=== PATIENT | male | born 1975 | race Caucasian/White ===

== ENCOUNTER 2019-07-05 10:38 | Inpatient (IN) | payer MEDICAID ==
[~2019-07-05] VITALS: Ht 180.3 cm; Wt 90.7 kg
--- NOTE | 2019-07-05 11:15 | NUR ---
CAME IN FOR DIFFICULTY SWALLOWING, ALSO HAD SYNCOPAL EPISODE IN [employer] [facility] DAYS AGO. TO ER BED 8, HOOKED TO MONITOR, CHANGED TO GOWN, PROVIDED W WARM BLANKET, DR MOORE AT BEDSIDE
[2019-07-05] MEDS ORDERED: IV NS 0.9% 1,000 ML BAG IV ONE (11:30)
[2019-07-05] MEDS ORDERED: IV NS 0.9% 1,000 ML IV ONE (11:30)
[2019-07-05 11:48] LABS: BASOPHILS # (AUTO) 0.1 /CMM (0.0-0.2); HEMATOCRIT 44 % (39-51); HEMOGLOBIN 14.5 g/dL (13.5-17.5); LYMPHOCYTES # (AUTO) 2.8 /CMM (0.8-4.8); LYMPHOCYTES % (AUTO) 23.8 % (20.0-44.0); MEAN CORPUSCULAR HGB CONC 33 g/dl (31.0-36.0); MEAN CORPUSCULAR VOLUME 88 fL (80-96); MONOCYTES # (AUTO) 0.9 /CMM (0.1-1.30); MONOCYTES % (AUTO) 7.6 % (2.0-12.0); NEUTROPHILS # (AUTO) 7.7 /CMM (1.8-8.9); NEUTROPHILS % (AUTO) 64.6 % (43.0-81.0); PLATELET COUNT (AUTO) 368 /CMM (150-450); RED BLOOD CELL COUNT(AUTO) 4.96 MIL/uL (4.5-6.0); WHITE BLOOD COUNT (AUTO) 11.9 K/uL (4.3-11.0)
[2019-07-05 11:58] LABS: CALCIUM, SERUM 9.3 mg/dL (8.5-10.1); CREATININE 0.9 mg/dL (0.6-1.3); POTASSIUM 4.4 mmol/L (3.5-5.1)
[2019-07-05 12:04] LABS: BILIRUBIN,DIRECT 0.3 mg/dL (0.0-0.2); TOTAL PROTEIN, SERUM 9.6 g/dL (6.4-8.2)
[2019-07-05] MEDS ORDERED: IOHEXOL-300 100 ML VIAL IV ONE (12:09)
[2019-07-05] MEDS ORDERED: CT SWABBABLE VALVE TRANS SET 1 EA INFUS.SET MC ONE (12:09)
[2019-07-05] MEDS ORDERED: CLINDAMYCIN 600 MG in IV D5W 100 ML IV ONE (12:30)
--- NOTE | 2019-07-05 13:20 | NUR ---
CALLED NURSING SUP REQUESTED MEDSURG BED
[2019-07-05] MEDS ORDERED: DEXAMETHASONE SOD PHOSPHATE 10 MG/ML VIAL ONE (13:27)
[2019-07-05] MEDS ORDERED: DEXAMETHASONE SOD PHOSPHATE 10 MG/ML VIAL IV ONE (13:30)
--- NOTE | 2019-07-05 13:40 | NUR ---
ROOM 315-1 MS
--- NOTE | 2019-07-05 13:48 | NUR ---
REPORT GIVEN TO ALCON OF MS UNIT.
[2019-07-05] MEDS ORDERED: CLINDAMYCIN IV RTU IN D5W 900 MG/50 ML PIGGYBACK IV SCH (14:30)
[2019-07-05] MEDS ORDERED: MAG HYDROX/AL HYDROX/SIMETH 30 ML UDC PO PRN (14:30)
[2019-07-05] MEDS ORDERED: ACETAMINOPHEN 325 MG TABLET PO PRN (14:30)
[2019-07-05] MEDS ORDERED: Z GUARD REMEDY 2 OZ OINT TP PRN (14:30)
[2019-07-05] MEDS ORDERED: ONDANSETRON HCL/PF 4 MG/2 ML VIAL IVP PRN (14:30)
[2019-07-05] MEDS ORDERED: MAGNESIUM HYDROXIDE 30 ML UDC PO PRN (14:30)
[2019-07-05 14:35] VITALS: BP 145/82
--- NOTE | 2019-07-05 14:38 | NUR ---
TRANSPORTED TO MS UNIT BY TECH
--- NOTE | 2019-07-05 14:40 | NUR ---
m/s electrophysiology technologist: admission admitted this 44 year old male pt from [facility] with dx: pharyngitis. awake, a/ox4; ambulatory. still c/o difficulty swallowing. pt on aspiration precaution. hob elevated. vss, afebrile. oriented to room and surroundings. instructed to call for assistance. will continue to monitor.
[2019-07-05] MEDS: IV NS 0.9% 1,000 ML IV SCH (15:23)
[2019-07-05] MEDS: HYDROCODONE/APAP 5/325MG 1 EACH TABLET PO PRN ×2 (15:33→20:48)
--- NOTE | 2019-07-05 15:33 | NUR ---
m/s scullion chief: notes at bedside at this time. c/o 9/10 right neck pain, medicated with norco 5/325mg po as ordered. instructed to call for assistance. will continue to monitor.
[2019-07-05 16:00] VITALS: BP 145/82
--- NOTE | 2019-07-05 17:00 | NUR ---
m/s table saw operator: notes dinner served, hob elevated. brought outside food also. pt able to swallow slowly with no aspiration noted at this time. instructed to call for assistance. will continue to monitor.
--- NOTE | 2019-07-05 19:00 | NUR ---
m/s host and hostess: notes report given to sheri (rn) for continuity of care. needs attended.
--- NOTE | 2019-07-05 19:42 | NUR ---
RN MS OPENING NOTES RECEIVED PATIENT IN BED AWAKE, ALERT AND ORIENTED X4, VERBALLY RESPONSIVE, ABLE TO MAKE NEEDS KNOWN. BREATHING EVEN AND UNLABORED. NO SOB NOTED. TOLERATING ROOM AIR. CURRENTLY WITH NO COMPLAINTS OF PAIN OR DISCOMFORT. NO FACIAL GRIMACING. IV ON THE LEFT AC INTACT AND PATENT WITH IVF INFUSING. SKIN DRY AND WARM TO TOUCH. AFEBRILE. ALL OTHER NEEDS ATTENDED TO. SAFETY MEASURES IN PLACE. CALL LIGHT WITHIN REACH. WILL CONTINUE TO MONITOR.
[2019-07-05 20:00] VITALS: BP 147/82
[2019-07-05] MEDS: CLINDAMYCIN 900 MG in IV D5W 50 ML IV SCH (20:34)
[2019-07-05] MEDS: methylPREDNISolone SOD SUCC 40 MG/ML VIAL IV SCH (20:38)
--- NOTE | 2019-07-05 20:48 | NUR ---
RN MS NOTES PATIENT REQUESTED FOR PAIN MEDICATION DUE TO NECK PAIN. NORCO 5-325MG PO GIVEN. WILL CONTINUE TO MONITOR.
[2019-07-06] MEDS: IV NS 0.9% 1,000 ML IV SCH (00:30)
[2019-07-06] MEDS: CLINDAMYCIN 900 MG in IV D5W 50 ML IV SCH (05:22)
--- NOTE | 2019-07-06 06:40 | NUR ---
RN MS CLOSING NOTES PATIENT RESTING IN BED. NO ACUTE CHANGES THROUGHOUT SHIFT. BREATHING EVEN AND UNLABORED. NO SOB NOTED. TOLERATING ROOM AIR. CURRENTLY WITH NO COMPLAINTS OF PAIN OR DISCOMFORT. NO FACIAL GRIMACING. IV ON THE LEFT AC INTACT AND PATENT WITH IVF INFUSING. ALL OTHER NEEDS ATTENDED TO. SAFETY MEASURES IN PLACE. CALL LIGHT WITHIN REACH. WILL ENDORSE TO ONCOMING NURSE FOR SALTY. Addendum: 07/06/19 at 0651 by LISANDRO LEE RN NO S/S OF ASPIRATION. PATIENT WAS ABLE TO SWALLOW SLOWLY WITH NO ISSUES.
--- NOTE | 2019-07-06 07:25 | NUR ---
RN OPENING NOTES RECEIVED PATIENT IN BED AWAKE, ALERT AND ORIENTED X4, VERBALLY RESPONSIVE, ABLE TO MAKE NEEDS KNOWN. BREATHING EVEN AND UNLABORED. NO SOB NOTED. NOT IN ANY FORM OF DISTRESS. TOLERATING ROOM AIR. PER PATIENT, HE'S THROAT IS GETTING BETTER. IV ON THE LEFT AC INTACT AND PATENT. ALL OTHER NEEDS ATTENDED TO. SAFETY MEASURES IN PLACE. CALL LIGHT WITHIN REACH. BED IN LOW/LOCKED POSITION, SIDERAILS UP X2. WILL CONTINUE TO MONITOR ACCORDINGLY.
[2019-07-06 08:00] VITALS: BP 142/81
[2019-07-06 08:16] LABS: BASOPHILS % (AUTO) 0.2 % (0.0-2.0); HEMATOCRIT 42 % (39-51); HEMOGLOBIN 14.3 g/dL (13.5-17.5); LYMPHOCYTES % (AUTO) 15.6 % (20.0-44.0); MEAN CORPUSCULAR HGB CONC 34 g/dl (31.0-36.0); MEAN CORPUSCULAR VOLUME 87 fL (80-96); MONOCYTES # (AUTO) 0.4 /CMM (0.1-1.30); MONOCYTES % (AUTO) 3.4 % (2.0-12.0); NEUTROPHILS # (AUTO) 10.4 /CMM (1.8-8.9); NEUTROPHILS % (AUTO) 80.8 % (43.0-81.0); PLATELET COUNT (AUTO) 360 /CMM (150-450); RED BLOOD CELL COUNT(AUTO) 4.86 MIL/uL (4.5-6.0); WHITE BLOOD COUNT (AUTO) 12.9 K/uL (4.3-11.0)
[2019-07-06 08:24] LABS: CREATININE 0.7 mg/dL (0.6-1.3); MAGNESIUM 2.3 mg/dL (1.8-2.4); POTASSIUM 4.6 mmol/L (3.5-5.1)
[2019-07-06] MEDS: methylPREDNISolone SOD SUCC 40 MG/ML VIAL IV SCH (09:04)
[2019-07-06] MEDS: HYDROCODONE/APAP 5/325MG 1 EACH TABLET PO PRN (09:06)
[2019-07-06] MEDS ORDERED: CLIN150C16 PO (10:41)
--- NOTE | 2019-07-06 11:45 | NUR ---
DISCHARGED PATIENT IN STABLE CONDITION. ACCOMPANIED BY FIONA RODARTE AT THE LOBBY PICKED UP BY . DISCHARGE INSTRUCTIONS GIVEN, VERBALIZED UNDERSTANDING. DC PAPERWORK AND PRESCRIPTION HANDED TO PATIENT. ALL BELONGINGS RETURNED, FORM SIGNED. REMOVED IV ACCESS, NO BLEEDING, NO COMPLICATIONS. REMOVED NAME BAND. REFUSED PHOTOS,SKIN INTACT.
== END 2019-07-06 12:00 | disposition home or self-care (01) | DRG 113 ==
LOC: ER 10:40 → MED 14:16
PROVIDERS: ADMIT Internal Medicine; ATTEND Internal Medicine
DX: J02.9 Acute pharyngitis, unspecified (principal); E43 Unspecified severe protein-calorie malnutrition; J05.10 Acute epiglottitis without obstruction; Z88.0 Allergy status to penicillin; R13.10 Dysphagia, unspecified; E86.0 Dehydration; Z68.27 Body mass index [BMI] 27.0-27.9, adult
CPT/HCPCS: 36415; 70491-TC; 71045-TC; 80048-TC; 80076-TC; 83735-TC; 84100-TC; 85025-TC; 85730-TC; 87040-TC; 87081-TC; G0378; J1100; J2920; J3490; J7030; J7060; Q9967

== ENCOUNTER 2024-12-29 04:32 | Emergency (ER) | payer BC, MEDICAID, OTHER ==
[~2024-12-29] VITALS: Ht 180.3 cm; Wt 90.7 kg
[~2024-12-29 04:32] MED LIST: CLIN150C16 PO
[2024-12-29] MEDS ORDERED: ACET-2605 PO (09:07)
[2024-12-29] MEDS ORDERED: IBUP-1490 PO (09:07)
[2024-12-29 10:33] VITALS: BP 153/89; TEMP 98.1; O2SAT 99
== END 2024-12-29 09:30 | disposition home or self-care (01) ==
LOC: ER 04:41
DX: M79.672 Pain in left foot (principal); Z88.0 Allergy status to penicillin
CPT/HCPCS: 73630-TC